=== PATIENT | male | born 1995 | race African-American/Black ===

== ENCOUNTER 2017-03-05 00:20 | Emergency (ER) | payer OTHER ==
[~2017-03-05] VITALS: Ht 182.9 cm; Wt 86.3 kg
[2017-03-05] MEDS ORDERED: MUCINEX D ER T1 EACH PO (00:44)
[2017-03-05] MEDS ORDERED: PREDNISONE20 MG PO (00:44)
[2017-03-05] MEDS ORDERED: ZITHROMAX250 MG PO (00:44)
[2017-03-05] MEDS ORDERED: VENTOLIN HFA18 GM IH (00:44)
[2017-03-05] MEDS ORDERED: FLONASE16 G1 BOTH NARES (00:44)
[2017-03-05 01:00] VITALS: BP 134/77
== END 2017-03-05 01:00 | disposition home or self-care (01) ==
LOC: EME 00:20
DX: J32.9 Chronic sinusitis, unspecified (principal); J18.0 Bronchopneumonia, unspecified organism; J45.909 Unspecified asthma, uncomplicated; F17.200 Nicotine dependence, unspecified, uncomplicated
CPT/HCPCS: 99281; 99283; J7512